=== PATIENT | female | born 1960 | race Caucasian/White ===

== ENCOUNTER 2017-05-16 17:12 | Inpatient (IN) | payer BC ==
[~2017-05-16] VITALS: Ht 167.6 cm; Wt 123.5 kg
[2017-05-16 17:37] VITALS: BP 148/92
[2017-05-16 18:43] VITALS: BP 148/92
[2017-05-16] MEDS ORDERED: DEXTROSE 50% 25 GM / 50ML DISP.SYRIN. IV PRN (19:00)
[2017-05-16 19:28] VITALS: BP 117/72
[2017-05-16] MEDS ORDERED: FUROSEMIDE 20 MG/2 ML VIAL IVP ONE (19:30)
[2017-05-16 19:33] LABS: ALBUMIN/GLOBULIN RATIO 0.6 (1.0-1.7); CALCIUM 8.9 mg/dL (8.5-10.1); CREATININE 0.7 mg/dL (0.6-1.0); GFR 87.2; POTASSIUM 4.1 mmol/L (3.5-5.1); TOTAL BILIRUBIN 0.4 mg/dL (0.2-1.0); TOTAL PROTEIN 7.7 g/dL (6.4-8.2)
[2017-05-16 20:02] LABS: BASO % 1 % (0-3); EOS # 0.1 x10^3/uL (0.0-0.7); EOS % 1 % (0-3); HEMATOCRIT 38.8 % (36.0-47.0); HEMOGLOBIN 13.1 g/dL (12.0-15.5); LYMPH # 1.9 x10^3/uL (1.0-4.8); LYMPH % 19 % (24-48); MEAN CORPUSCULAR HEMOGLOBIN 29 pg (25-35); MEAN CORPUSCULAR HGB CONC 34 g/dL (31-37); MEAN CORPUSCULAR VOLUME 86 fL (79-100); MONO # 0.6 x10^3/uL (0.0-1.1); MONO % 6 % (0-9); NEUT # 7.2 x10^3uL (1.8-7.7); NEUT % 73 % (31-73); PLATELET COUNT 300 x10^3/uL (140-400); RED BLOOD COUNT 4.53 x10^6/uL (3.50-5.40); WHITE BLOOD COUNT 9.8 x10^3/uL (4.0-11.0)
[2017-05-16 20:15] LABS: BGAS PH 7.46 (7.35-7.45)
[2017-05-16] MEDS ORDERED: CONTRAST GIVEN MC PRN (20:45)
[2017-05-16] MEDS ORDERED: IOHEXOL 300 MG/ML 75 ML VIAL. IV ONE (20:45)
[2017-05-16] MEDS: HEPARIN PF for SUB-Q USE 5,000 UNIT/0.5 ML VIAL. SQ SCH (21:31)
[2017-05-16] MEDS: INSULIN ASPART 300 UNITS/3 ML INSULN.PEN SQ SCH (21:32)
--- NOTE | 2017-05-16 21:46 | RAD ---
CTA Chest with contrast: Clinical History: 053214.001 Omni 300 75cc: PE protocol: Short of air, chest discomfort, elevated d-dimer. No priors. . Axial helical images of the chest were obtained after the administration of 75 cc of IV Omni 300 and timed appropriately for a pulmonary arterial study. Conventional axial reconstruction was performed in addition to coronal, sagittal and bilateral oblique MIP (maximum intensity projection). This study was ordered to detect possible pulmonary embolism. There are no filling defects to suggest pulmonary embolism. There are mild pleural effusions bilaterally. There is patchy opacities in the lung bases. There is no mediastinal or hilar lymphadenopathy. The thoracic aorta appears normal. Impression: 1. No evidence of pulmonary embolism. 2. Mild pleural effusions bilaterally. 3. Basal infiltrates bilaterally could be pneumonia. PQRS Compliance Statement: One or more of the following individualized dose reduction techniques were utilized for this examination: 1. Automated exposure control 2. Adjustment of the mA and/or kV according to patient size 3. Use of iterative reconstruction technique Electronically signed by: Miguel Angel Noble III, MD (05/16/2017 9:43 PM) [facility]
[2017-05-16 23:16] LABS: BACTERIA,URINE 0 /HPF (0-FEW); BILIRUBIN,URINE NEG (NEG); CLARITY,URINE CLEAR; COLOR,URINE YELLOW; GLUCOSE,URINE 500 mg/dL (NEG); NITRITE,URINE NEG (NEG); RBC,URINE OCC /HPF (0-2); SQUAMOUS EPITHELIAL CELL,UR OCC /LPF; UROBILINOGEN,URINE 0.2 mg/dL (0.2 mg/dL); WBC,URINE OCC /HPF (0-4)
[2017-05-16 23:22] VITALS: BP 121/77
--- NOTE | 2017-05-16 23:26 | RAD ---
Examination: 2 views of the chest HISTORY: History of chest pain, shortness of breath COMPARISON: None available FINDINGS: The cardiomediastinal silhouette grossly appears unremarkable. Mild bibasilar lung airspace opacities likely pneumonia or atelectasis. Trace bilateral pleural effusions. IMPRESSION: 1. Mild bibasilar lung airspace opacity likely atelectasis or infiltrates. 2. Trace pleural effusions. Electronically signed by: Martin Sweeney MD (05/16/2017 11:23 PM) [facility]
[2017-05-17 06:29] VITALS: BP 129/85
[2017-05-17 06:55] LABS: BASO # 0.1 x10^3/uL (0.0-0.2); BASO % 1 % (0-3); EOS # 0.2 x10^3/uL (0.0-0.7); EOS % 2 % (0-3); HEMATOCRIT 35.2 % (36.0-47.0); HEMOGLOBIN 11.8 g/dL (12.0-15.5); LYMPH # 2.7 x10^3/uL (1.0-4.8); LYMPH % 29 % (24-48); MEAN CORPUSCULAR HEMOGLOBIN 29 pg (25-35); MEAN CORPUSCULAR HGB CONC 34 g/dL (31-37); MEAN CORPUSCULAR VOLUME 86 fL (79-100); MONO # 0.7 x10^3/uL (0.0-1.1); MONO % 8 % (0-9); NEUT # 5.7 x10^3uL (1.8-7.7); NEUT % 61 % (31-73); PLATELET COUNT 272 x10^3/uL (140-400); RED BLOOD COUNT 4.12 x10^6/uL (3.50-5.40); RED CELL DISTRIBUTION WIDTH 13.2 % (11.5-14.5); WHITE BLOOD COUNT 9.3 x10^3/uL (4.0-11.0)
[2017-05-17 07:15] LABS: ALBUMIN 2.8 g/dL (3.4-5.0); ALBUMIN/GLOBULIN RATIO 0.7 (1.0-1.7); CALCIUM 8.7 mg/dL (8.5-10.1); CREATININE 0.7 mg/dL (0.6-1.0); GFR 87.2; POTASSIUM 3.9 mmol/L (3.5-5.1); TOTAL BILIRUBIN 0.5 mg/dL (0.2-1.0)
[2017-05-17] MEDS: INSULIN ASPART 300 UNITS/3 ML INSULN.PEN SQ SCH ×2 (08:05→11:46)
[2017-05-17] MEDS: HEPARIN PF for SUB-Q USE 5,000 UNIT/0.5 ML VIAL. SQ SCH (08:06)
[2017-05-17] MEDS ORDERED: PNEUMOC CONJ VACC 23-VALENT 0.5 ML VIAL. VAX IM ONE (09:00)
[2017-05-17] MEDS ORDERED: METOPROLOL TART IMMED RELEASE 25 MG TABLET PO SCH (09:45)
[2017-05-17] MEDS ORDERED: ASPIRIN 325 MG TABLET PO SCH (09:45)
--- NOTE | 2017-05-17 09:54 | PDOC2 ---
CONSULT Date of Admission DATE: 05/17/17 TIME: 09:43 Reason for Consult: elevated troponin History of Present Illness Ms Howard is a 56 year old female who presents as direct admission from her PCP office where she was seen due to complaints of dyspnea on exertion. She reports normally swimming 1 hour three days per week. Starting last week she began having exertional dyspnea and she thought she had a cold. By the end of the week she was unable to complete her swim due to dyspnea. On Tuesday she found she was unable to go up and down the stairs in her room and slept in a recliner that night. She reports some mild edema that is new. She reports one episode of chest pain that radiated to her subscapular region. She describes this as sharp stabbing and resolved after a few minutes of rest. She denies dyspnea at rest. She denies palpitations, lightheadedness or syncope. She was also found to have a significantly elevated blood sugar on admission but denies diabetes. She reports her blood pressures have been elevated around 150/90 at home for some time but takes not medications. Past Medical History gestational diabetes seasonal allergies with post nasal drip dyslipidemia Past Surgical History c section Family History significant for premature coronary artery disease Social History non smoker, no significant ETOH, no illicit drugs Current Medications Current Medications Pneumococcal Polyvalent Vaccine (Pneumovax 23) 0.5 ml ONCE ONCE VAX IM ; Start 05/17/17 at 09:00; Stop 05/17/17 at 09:01; Status DC Furosemide (Lasix) 20 mg 1X ONCE IVP Last administered on 05/16/17 21:24; Start 05/16/17 at 19:30; Stop 05/16/17 at 19:31; Status DC Insulin Aspart (NovoLOG) 0-7 UNITS QIDACHS SQ Last administered on 05/17/17 08:05; Start 05/16/17 at 21:00 Dextrose 12.5 gm PRN Q15MIN PRN IV SEE COMMENTS; Start 05/16/17 at 19:00 Heparin Sodium (Porcine) 5,000 unit TID SQ Last administered on 05/17/17 08: 06; Start 05/16/17 at 21:00 Iohexol (Omnipaque 300 Mg/ml) 75 ml 1X ONCE IV Last administered on 21:05; Start 05/16/17 at 20:45; Stop 05/16/17 at 20:46; Status DC Info (Do NOT chart on this entry -- for MONITORING) 1 each PRN DAILY PRN MC SEE COMMENTS; Start 05/16/17 at 20:45; Stop 05/18/17 at 20:44 Allergies: Coded Allergies: latex (Verified Allergy, Unknown, 05/16/17) Review of System as per HPI or negative General: Alert, Oriented X3, Cooperative, No acute distress HEENT: Atraumatic, EOMI, Mucous membr. moist/pink Lungs: Other (decreased bases bilaterally) Heart: Regular rate, Normal S1, Normal S2, Other (no gallops, clicks or rubs) Abdomen: Normal bowel sounds, Soft, No tenderness Extremities: Normal pulses, Other (trace bilateral pedal edema) Neuro: Normal speech, Strength at 5/5 X4 ext Psych/Mental Status: Mental status NL, Mood NL VITALS Vital Signs Date Time Temp Pulse Resp B/P (MAP) Pulse Ox O2 Delivery O2 Flow Rate FiO2 05/17/17 07:45 Room Air 05/17/17 06:29 97.9 95 20 129/85 (100) 96 Labs Laboratory Tests Test 05/16/17 18:45 05/16/17 19:10 05/16/17 19:57 05/16/17 22:50 White Blood Count 9.8 x10^3/uL (4.0-11.0) Red Blood Count 4.53 x10^6/uL (3.50-5.40) Hemoglobin 13.1 g/dL (12.0-15.5) Hematocrit 38.8 % (36.0-47.0) Mean Corpuscular Volume 86 fL (79-100) Mean Corpuscular Hemoglobin 29 pg (25-35) Mean Corpuscular Hemoglobin Concent 34 g/dL (31-37) Red Cell Distribution Width 13.0 % (11.5-14.5) Platelet Count 300 x10^3/uL (140-400) Neutrophils (%) (Auto) 73 % (31-73) Lymphocytes (%) (Auto) 19 % (24-48) Monocytes (%) (Auto) 6 % (0-9) Eosinophils (%) (Auto) 1 % (0-3) Basophils (%) (Auto) 1 % (0-3) Neutrophils # (Auto) 7.2 x10^3uL (1.8-7.7) Lymphocytes # (Auto) 1.9 x10^3/uL (1.0-4.8) Monocytes # (Auto) 0.6 x10^3/uL (0.0-1.1) Eosinophils # (Auto) 0.1 x10^3/uL (0.0-0.7) Basophils # (Auto) 0.0 x10^3/uL (0.0-0.2) D-Dimer (Sheyla) 0.94 mg/L (0.00-0.50) Sodium Level 136 mmol/L (136-145) Potassium Level 4.1 mmol/L (3.5-5.1) Chloride Level 100 mmol/L (98-107) Carbon Dioxide Level 25 mmol/L (21-32) Anion Gap 11 (6-14) Blood Urea Nitrogen 9 mg/dL (7-20) Creatinine 0.7 mg/dL (0.6-1.0) Estimated GFR (Cockcroft-Gault) 87.2 BUN/Creatinine Ratio 13 (6-20) Glucose Level 350 mg/dL (70-99) Calcium Level 8.9 mg/dL (8.5-10.1) Total Bilirubin 0.4 mg/dL (0.2-1.0) Aspartate Amino Transf (AST/SGOT) 23 U/L (15-37) Alanine Aminotransferase (ALT/SGPT) 25 U/L (14-59) Alkaline Phosphatase 110 U/L (46-116) Creatine Kinase 101 U/L (26-192) Troponin I Quantitative 1.119 ng/mL (0-0.055) LT-Xdw-B-Type Natriuretic Peptide 1487 pg/mL (0-124) Total Protein 7.7 g/dL (6.4-8.2) Albumin 3.0 g/dL (3.4-5.0) Albumin/Globulin Ratio 0.6 (1.0-1.7) Acetone Level Neg (NEG) Blood Gas pH 7.46 (7.35-7.45) Blood Gas PCO2 30 mmHg (35-45) Blood Gas PO2 79 mmHg (80-100) Blood Gas HCO3 22 mmol/L (22-26) Arterial Bld O2 Saturation (Calc) 97 % (92-99) FiO2 21 % Glucose (Fingerstick) 354 mg/dL (70-99) Urine Collection Type Unknown Urine Color Yellow Urine Clarity Clear Urine pH 5.5 Urine Specific [place] <=1.005 Urine Protein Neg (NEG-TRACE) Urine Glucose (UA) 500 mg/dL (NEG) Urine Ketones (Stick) Neg mg/dL (NEG) Urine Blood Neg (NEG) Urine Nitrite Neg (NEG) Urine Bilirubin Neg (NEG) Urine Urobilinogen Dipstick 0.2 mg/dL (0.2 mg/dL) Urine Leukocyte Esterase Neg (NEG) Urine RBC Occ /HPF (0-2) Urine WBC Occ /HPF (0-4) Urine Squamous Epithelial Cells Occ /LPF Urine Bacteria 0 /HPF (0-FEW) Test 05/17/17 01:25 05/17/17 06:35 05/17/17 07:07 Troponin I Quantitative 1.182 ng/mL (0-0.055) 1.335 ng/mL (0-0.055) White Blood Count 9.3 x10^3/uL (4.0-11.0) Red Blood Count 4.12 x10^6/uL (3.50-5.40) Hemoglobin 11.8 g/dL (12.0-15.5) Hematocrit 35.2 % (36.0-47.0) Mean Corpuscular Volume 86 fL (79-100) Mean Corpuscular Hemoglobin 29 pg (25-35) Mean Corpuscular Hemoglobin Concent 34 g/dL (31-37) Red Cell Distribution Width 13.2 % (11.5-14.5) Platelet Count 272 x10^3/uL (140-400) Neutrophils (%) (Auto) 61 % (31-73) Lymphocytes (%) (Auto) 29 % (24-48) Monocytes (%) (Auto) 8 % (0-9) Eosinophils (%) (Auto) 2 % (0-3) Basophils (%) (Auto) 1 % (0-3) Neutrophils # (Auto) 5.7 x10^3uL (1.8-7.7) Lymphocytes # (Auto) 2.7 x10^3/uL (1.0-4.8) Monocytes # (Auto) 0.7 x10^3/uL (0.0-1.1) Eosinophils # (Auto) 0.2 x10^3/uL (0.0-0.7) Basophils # (Auto) 0.1 x10^3/uL (0.0-0.2) Sodium Level 139 mmol/L (136-145) Potassium Level 3.9 mmol/L (3.5-5.1) Chloride Level 101 mmol/L (98-107) Carbon Dioxide Level 27 mmol/L (21-32) Anion Gap 11 (6-14) Blood Urea Nitrogen 10 mg/dL (7-20) Creatinine 0.7 mg/dL (0.6-1.0) Estimated GFR (Cockcroft-Gault) 87.2 BUN/Creatinine Ratio 14 (6-20) Glucose Level 266 mg/dL (70-99) Calcium Level 8.7 mg/dL (8.5-10.1) Total Bilirubin 0.5 mg/dL (0.2-1.0) Aspartate Amino Transf (AST/SGOT) 21 U/L (15-37) Alanine Aminotransferase (ALT/SGPT) 23 U/L (14-59) Alkaline Phosphatase 99 U/L (46-116) Total Protein 7.0 g/dL (6.4-8.2) Albumin 2.8 g/dL (3.4-5.0) Albumin/Globulin Ratio 0.7 (1.0-1.7) Glucose (Fingerstick) 243 mg/dL (70-99) Images EKG - sinus rhythm, AWMI CXR - IMPRESSION: 1. Mild bibasilar lung airspace opacity likely atelectasis or infiltrates. 2. Trace pleural effusions. CT - Impression: 1. No evidence of pulmonary embolism. 2. Mild pleural effusions bilaterally. 3. Basal infiltrates bilaterally could be pneumonia. Assessment/Plan 1. NSTEMI - aspirin, beta luisa, heparin, transfer for cardiac cath. Discussed with IM and Cardiology at [facility] and they have accepted transfer. 2. acute systolic HF - clinically compensated. EF 25% with anterior wall motion abn. 3. hyperglycemia - A1C pending. Mgmt per IM. 4. prior dyslipidemia, diet controlled - check lipids. POC discussed with Dr Goodman Problems: JUAN ANTONIO LEON APRN May 17, 2017 09:54
[2017-05-17] MEDS ORDERED: DOXYCYCLINE HYCLATE 100 MG TABLET PO SCH (10:30)
[2017-05-17 11:23] VITALS: BP 131/86
--- NOTE | 2017-05-17 13:11 | CARD ---
APPROVED REPORT EXAM: Two-dimensional and M-mode echocardiogram with Doppler and color Doppler. Other Information Quality : GoodHR: 87bpm INDICATION Peripheral Edema Chest Pain RISK FACTORS Obesity 2D DIMENSIONS RVDd2.9 (2.9-3.5cm)Left Atrium(2D)3.0 (1.6-4.0cm) IVSd1.0 (0.7-1.1cm)Aortic Root(2D)2.7 (2.0-3.7cm) LVDd5.0 (3.9-5.9cm)LVOT Diameter2.1 (1.8-2.4cm) PWd1.1 (0.7-1.1cm)LVDs4.2 (2.5-4.0cm) FS (%) 16.1 %SV40.1 ml LVEF(%)33.7 (>50%) Aortic Valve AoV Peak Johnny.111.5cm/sAoV VTI20.6cm AO Peak GR.5.0mmHgLVOT Peak Johnny.94.1cm/s AO Mean GR.3mmHgAVA (VMAX)2.90cm2 Mitral Valve MV E Gbprreub99.9cm/sMV E Peak Gr.98mmHg MV DECEL [id number] A Vzhbzpye10.2cm/s E/A Ratio1.8 Pulmonary Valve PV Peak Gkysjaoh83.9cm/sPV Peak Grad.4mmHg Tricuspid Valve TR P. Coiydktq094ow/sRAP [id number] TR Peak Gr.62zxSnBEKW54hfQr LEFT VENTRICLE The left ventricle is normal size. There is normal left ventricular wall thickness. The ejection frac tion is moderately impaired. EF 25% Significant regional wall motion abnormalities noted. There is mo derate to severe hypokinesis in the mid to distal anteroseptal, mid to distal anterior, and anterior wall. Tissue Doppler imaging reveals moderate left ventricular diastolic dysfunction. RIGHT VENTRICLE The right ventricle is normal size. The right ventricular systolic function is normal. ATRIA The left atrium size is normal. The right atrium size is normal. The interatrial septum is intact wit h no evidence for an atrial septal defect or patent foramen ovale as noted on 2-D or Doppler imaging. AORTIC VALVE The aortic valve is thickened but opens well. Doppler and Color Flow revealed no significant aortic r egurgitation. There is no significant aortic valvular stenosis. There is no aortic valvular vegetatio n. MITRAL VALVE The mitral valve is thickened but opens well. There is no evidence of mitral valve prolapse. There is no mitral valve stenosis. Doppler and Color-flow revealed mild mitral regurgitation. TRICUSPID VALVE The tricuspid valve is normal in structure and function. Doppler and Color Flow revealed mild tricusp id regurgitation. Unable to determine accurate RVSP. There is no tricuspid valve prolapse or vegetati on. There is no tricuspid valve stenosis. PULMONIC VALVE Doppler and Color Flow revealed no pulmonic valvular regurgitation. There is no pulmonic valvular oscar nosis. GREAT VESSELS The aortic root is normal in size. IVC was dilated without collapse suggestive of volume overload. PERICARDIAL EFFUSION There is no pleural effusion. There is a trace loculated anterior pericardial effusion. Critical Notification Physician Notified Date: 05/17/2017 Time: 13:03 Critical Value: Yes Response Time:13:04 <Conclusion> The ejection fraction is moderately impaired. EF 25% Significant regional wall motion abnormalities noted. There is moderate to severe hypokinesis in the mid to distal anteroseptal, mid to distal anterior, and anterior wall. IVC was dilated without collapse suggestive of volume overload.
[2017-05-17 13:15] VITALS: BP 117/69
[2017-05-17] MEDS ORDERED: HEPARIN 25,000UTS/500ML PREMIX 500 ML IV PRN (13:15)
[2017-05-17] MEDS ORDERED: HEPARIN for IV BOLUS 10,000 UNIT/10 ML VIAL. IV PRN ×2 (13:15)
[2017-05-17] MEDS ORDERED: HEPARIN for IV BOLUS 10,000 UNIT/10 ML VIAL. IV ONE (13:30)
[2017-05-17 13:33] LABS: BASO # 0.1 x10^3/uL (0.0-0.2); BASO % 1 % (0-3); EOS # 0.1 x10^3/uL (0.0-0.7); EOS % 1 % (0-3); HEMATOCRIT 36.2 % (36.0-47.0); HEMOGLOBIN 12.4 g/dL (12.0-15.5); LYMPH # 1.8 x10^3/uL (1.0-4.8); LYMPH % 20 % (24-48); MEAN CORPUSCULAR HEMOGLOBIN 30 pg (25-35); MEAN CORPUSCULAR HGB CONC 34 g/dL (31-37); MEAN CORPUSCULAR VOLUME 86 fL (79-100); MONO # 0.6 x10^3/uL (0.0-1.1); MONO % 7 % (0-9); NEUT # 6.7 x10^3uL (1.8-7.7); NEUT % 72 % (31-73); PLATELET COUNT 287 x10^3/uL (140-400); RED BLOOD COUNT 4.19 x10^6/uL (3.50-5.40); RED CELL DISTRIBUTION WIDTH 13.2 % (11.5-14.5); WHITE BLOOD COUNT 9.3 x10^3/uL (4.0-11.0)
[2017-05-17] MEDS ORDERED: LACTOBACILLUS RHAMNOSUS GG 1 CAPSULE. PO SCH (21:00)
[2017-05-18] MEDS ORDERED: PNEUMOC CONJ VACC 23-VALENT 0.5 ML VIAL. VAX IM ONE (09:00)
[2017-05-18 15:07] LABS: HEMOGLOBIN A1C 11.7 % (4.8-5.6)
--- NOTE | 2017-05-19 12:04 | EKG ---
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
--- NOTE | 2017-05-19 12:11 | EKG ---
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
== END 2017-05-17 14:04 | disposition short-term general hospital (02) | DRG 280 ==
LOC: 1 SOUTH 17:12
PROVIDERS: ADMIT Family Medicine; ATTEND Family Medicine
DX: I21.4 Non-ST elevation (NSTEMI) myocardial infarction (principal); E11.00 Type 2 diabetes mellitus with hyperosmolarity without nonketotic hyperglycemic-hyperosmolar coma (NKHHC); I50.21 Acute systolic (congestive) heart failure; E78.5 Hyperlipidemia, unspecified; J30.2 Other seasonal allergic rhinitis; Z82.49 Family history of ischemic heart disease and other diseases of the circulatory system; Z86.32 Personal history of gestational diabetes; Z80.0 Family history of malignant neoplasm of digestive organs; Z79.4 Long term (current) use of insulin; Z91.040 Latex allergy status
CPT/HCPCS: 36415; 71020; 71275; 80053; 80061; 81001; 82010; 82550; 82803; 82947; 83036; 83605; 83880; 84443; 84484; 85025; 85379; 85610; 85730; 93005; 93306; J0696; J1644; J1815; Q9967

== ENCOUNTER → 2021-04-15 | Outpatient (CLI) | payer BC ==
--- NOTE | 2021-04-15 16:00 | RAD ---
EXAM: ULTRASOUND SOFT TISSUE NECK CLINICAL HISTORY: Reason: THYROID NODULE / Spl. Instructions: / History: COMPARISON: None available. TECHNIQUE: Ultrasound examination of the thyroid gland was performed FINDINGS: The right thyroid lobe measures 4 x 0.9 x 1.6 cm. The left thyroid lobe measures 4.1 x 1 x 1.4 cm. The thyroid isthmus measures 0.7 cm. Thyroid is mildly heterogeneous in echotexture. A 0.6 cm nodule seen in the lower pole the right thyr oid, mildly heterogeneous and margins are difficult to profile. There is no regional cervical lymphadenopathy. IMPRESSION: Small nodule in the upper pole of the right thyroid measures 0.6 cm. Follow-up ultrasound in 12 month s is recommended. Electronically signed by: Justin Ogden MD (04/15/2021 3:57 PM) [id number]
== END ==
LOC: US 10:48
PROVIDERS: ATTEND Otolaryngology
DX: E04.1 Nontoxic single thyroid nodule (principal)
CPT/HCPCS: 76536